=== PATIENT | female | born 1965 | race Caucasian/White ===

== ENCOUNTER 2017-06-17 21:14 | Emergency (ER) | payer SELFPAY ==
[~2017-06-17] VITALS: Ht 167.6 cm; Wt 85.3 kg
[~2017-06-17 21:14] MED LIST: FOLIC ACID1 MG PO; IRON325 M1 PO; LANTUS 10100 UNITS/ SC; LANTUS 3 M100 UNITS1 SC; LOVENOX40 MG/0.4 SC; METFORMIN HCL500 MG PO; MOTRIN600 MG PO; POTASSIUM PO; SLEEPING PILL; TONIC; TYLENOL REGULA325 MG PO; VITAMIN B-6100 MG PO; VITAMIN B12-FO1 EACH PO; VITAMIN C500 MG/15 PO
[2017-06-17] MEDS ORDERED: MOTRIN800 MG PO (23:30)
[2017-06-17 23:53] VITALS: BP 191/98
== END 2017-06-17 23:53 | disposition home or self-care (01) ==
LOC: EME 21:14
DX: S63.501A Unspecified sprain of right wrist, initial encounter (principal); W18.09XA Striking against other object with subsequent fall, initial encounter; Z85.43 Personal history of malignant neoplasm of ovary; Z90.710 Acquired absence of both cervix and uterus; Z87.891 Personal history of nicotine dependence
CPT/HCPCS: 73110; 73130; 99281; 99283